=== PATIENT | male | born 1990 | race African-American/Black ===

== ENCOUNTER 2018-03-10 15:33 | Emergency (ER) | payer OTHER ==
[~2018-03-10] VITALS: Ht 182.9 cm; Wt 63.5 kg
[~2018-03-10 15:33] MED LIST: BACTRIM DS TAB1 EACH PO; CLEOCIN HCL300 MG PO; HYDROCODON-ACE1 EACH PO; IBUPROFEN 600600 M1 PO; KEFLEX500 MG PO; NOHOMEMEDICATIONS; NORCO 5-325 TA1 EACH PO; ZOFRAN ODT4 MG PO
[2018-03-10 16:00] LABS: ABSOLUTE NEUTROPHILS 3.7 thou/uL (1.4-8.2); BASOPHILS 0.7 % (0.0-2.0); EOSINOPHILS 1.8 % (0.0-3.0); HEMATOCRIT 43.3 % (42.0-52.0); HEMOGLOBIN 14.9 gm/dL (14.0-18.0); MCH 32.4 pg (26.0-34.0); MCHC 34.4 g/dL (28.0-37.0); MCV 94.3 fL (80.0-100.0); MONOCYTES 10.1 % (1.0-8.0); PLATELET COUNT 219 thou/uL (150-400); POLYS 52.4 % (36.0-66.0); RBC 4.59 mil/uL (4.50-6.00); RDW 12.8 % (10.5-14.5); WBC 7.1 thou/uL (4.0-11.0)
[2018-03-10 16:13] LABS: CALCIUM 9.5 mg/dL (8.5-10.1); CREATININE 0.9 mg/dL (0.7-1.3)
[2018-03-10 16:16] LABS: ALBUMIN 4.1 g/dL (3.4-5.0); TOTAL BILIRUBIN 0.5 mg/dL (<0.1-1.0); TOTAL PROTEIN 7.7 g/dL (6.4-8.2)
[2018-03-10 16:59] VITALS: BP 124/78
[2018-03-10 17:02] LABS: URINE BILIRUBIN NEGATIVE (Negative); URINE BLOOD NEGATIVE (Negative); URINE CLARITY CLEAR; URINE COLOR YELLOW; URINE GLUCOSE-RANDOM* NEGATIVE (Negative); URINE KETONES NEGATIVE (Negative); URINE LEUKOCYTES-REFLEX NEGATIVE (Negative); URINE NITRITE-REFLEX NEGATIVE (Negative); URINE PROTEIN (DIPSTICK) NEGATIVE (Negative); URINE SPECIFIC GRAVITY 1.015 (1.005-1.035)
[2018-03-10] MEDS ORDERED: ONDANSETRON HCL4 M2 PO (17:07)
== END 2018-03-10 17:13 | disposition home or self-care (01) ==
LOC: ER 15:33
PROVIDERS: Physician Assistant
DX: R11.2 Nausea with vomiting, unspecified (principal); R10.9 Unspecified abdominal pain; E86.0 Dehydration; R53.1 Weakness; Z90.89 Acquired absence of other organs

== ENCOUNTER 2018-08-29 19:58 | Emergency (ER) | payer OTHER ==
[~2018-08-29] VITALS: Ht 182.9 cm; Wt 65.8 kg
[~2018-08-29 19:58] MED LIST changes: +ONDANSETRON HCL4 M2 PO
[2018-08-29 20:57] LABS: BASOPHILS 0.1 % (0.0-2.0); EOSINOPHILS 1.6 % (0.0-3.0); HEMATOCRIT 45.4 % (42.0-52.0); LYMPHOCYTES 8.5 % (24.0-44.0); MCH 33.2 pg (26.0-34.0); MCHC 35.2 g/dL (28.0-37.0); MCV 94.4 fL (80.0-100.0); MONOCYTES 4.4 % (1.0-8.0); PLATELET COUNT 180 thou/uL (150-400); POLYS 85.4 % (36.0-66.0); RDW 12.9 % (10.5-14.5)
[2018-08-29 21:06] LABS: CALCIUM 8.9 mg/dL (8.5-10.1); CREATININE 1.1 mg/dL (0.7-1.3); POTASSIUM 3.7 mmol/L (3.5-5.1)
[2018-08-29 21:13] LABS: ALBUMIN 3.9 g/dL (3.4-5.0); TOTAL BILIRUBIN 0.5 mg/dL (<0.1-1.0); TOTAL PROTEIN 7.3 g/dL (6.4-8.2)
[2018-08-29] MEDS ORDERED: ZOFRAN ODT4 MG PO (21:23)
[2018-08-29 21:46] VITALS: BP 119/79
== END 2018-08-29 22:03 | disposition home or self-care (01) ==
LOC: ER 19:58
PROVIDERS: Emergency Medicine
DX: R11.2 Nausea with vomiting, unspecified (principal); R10.13 Epigastric pain

== ENCOUNTER 2020-01-16 16:58 | Emergency (ER) | payer OTHER ==
[~2020-01-16] VITALS: Ht 182.9 cm; Wt 63.5 kg
[2020-01-16] MEDS ORDERED: NYSTATIN100000 UNI SW&SWALLOW (18:19)
[2020-01-16 18:38] VITALS: BP 137/90
== END 2020-01-16 18:39 | disposition home or self-care (01) ==
LOC: ER 16:58
DX: B37.0 Candidal stomatitis (principal); Z90.89 Acquired absence of other organs

== ENCOUNTER 2020-07-11 11:15 | Emergency (ER) | payer OTHER ==
[~2020-07-11] VITALS: Ht 182.9 cm; Wt 63.5 kg
[~2020-07-11 11:15] MED LIST changes: +NYSTATIN100000 UNI SW&SWALLOW
[2020-07-11 11:22] VITALS: BP 125/93
[2020-07-11] MEDS ORDERED: SYMTUZA 800-151 EACH PO (12:00)
[2020-07-11] MEDS ORDERED: PROMETH-CODEIN 65 ML PO (12:13)
== END 2020-07-11 12:20 | disposition home or self-care (01) ==
LOC: ER 11:15
DX: U07.1 COVID-19 (principal); R19.7 Diarrhea, unspecified; Z90.89 Acquired absence of other organs; Z79.899 Other long term (current) drug therapy